=== PATIENT | female | born 1990 | race Caucasian/White ===

== ENCOUNTER → 2023-03-26 | Outpatient (CLI) | payer BC ==
--- NOTE | 2023-03-26 13:51 | US ---
EXAMINATION TYPE: Transabdominal DATE OF EXAM: 03/26/2023 1:28 PM COMPARISON: NONE CLINICAL INDICATION: Female, 32 years old with history of O26.851 SPOTTING COMPLICATING ; Br own spotting started last night. No cramping. Hx miscarriage. EXAM PERFORMED: Transvaginal (TV) and Transabdominal (TA) EXAM MEASUREMENTS: GESTATIONAL AGE / DATING Physician Established: Not yet established. Dates by LMP: (10 weeks/4 days) EDC: 01/11/2023 Dates by First Scan: This is first scan Dates by Current Scan for: (8 weeks/3 days) EDC: 11/02/2023. Heart tones not visualized. MATERNAL ANATOMY Uterus: 10.5 x 6.2 x 3.9 cm Anechoic fluid seen in cervix: 1.9 x 0.7 x 0.3 cm. Right Ovary: 2.8 x 2.3 x 2.0 cm. Left Ovary: 2.9 x 1.7 x 1.4 cm. Post CDS / Adnexa: Appear wnl Presence of free fluid: None seen Presence of corpus luteal cyst: Not seen Presence of subchorionic bleed: No GESTATION / SURVEY CRL: 1.83 cm (8 weeks/3 days) Yolk Sac (normal less than 6mm): 3.4 mm Heart Rate: Not visualized. IUP: Unable to visualize heart tones at this time. Date of LMP: 01/11/2023 Beta HcG (if available): Not available IMPRESSION: 1. Intrauterine with ultrasound age of 8 weeks 3 days without heart rate detected at this t mechelle. This is discordant with dates by last menstrual period. Findings concerning for demise. Cl inical correlation and Short-term follow-up ultrasound recommended for confirmation..
== END | disposition home or self-care (01) ==
LOC: RADUSWWP 12:54 → MERGE 13:00
PROVIDERS: ATTEND Obstetrics & Gynecology
DX: O26.851 Spotting complicating pregnancy, first trimester (principal); Z3A.09 9 weeks gestation of pregnancy
CPT/HCPCS: 76801; 76817

== ENCOUNTER → 2023-03-27 | Outpatient (CLI) | payer BC | END | disposition home or self-care (01) | LOC: LABPAT 14:14 | PROVIDERS: ATTEND Obstetrics & Gynecology | DX: Z53.9 Procedure and treatment not carried out, unspecified reason (principal) ==

== ENCOUNTER → 2023-03-27 | Outpatient (CLI) | payer BC ==
[2023-03-27 15:58] LABS: Partial Thromboplastin Time 24.6 sec (22.0-30.0)
[2023-03-27 16:18] LABS: INR 0.9 (<1.2); Prothrombin Time 10.4 sec (10.0-12.5)
[2023-03-27 20:42] LABS: HCT 40.4 % (37.2-46.3); HGB 13.7 g/dL (12.0-15.0); MCH 29.1 pg (27.0-32.0); MCHC 33.9 g/dL (32.0-37.0); Mean Platelet Volume 11.5 FL (9.5-12.2); NRBC Per 100 WBC 0 X 10*3/uL (0.00-0.01); Platelet Count 263 X 10*3/uL (140-440); RDW 12.6 % (11.5-14.5); WBC 8.13 X 10*3/uL (4.50-10.00)
[2023-03-27 21:14] LABS: Prolactin 28.1 ng/mL (2.800-29.200)
[2023-03-28 13:23] LABS: Prothrombin 20210A Mutation Negative
== END | disposition home or self-care (01) ==
LOC: LABWHC1 14:11
PROVIDERS: ATTEND Obstetrics & Gynecology
DX: N96 Recurrent pregnancy loss (principal)
CPT/HCPCS: 36415; 81240; 81241; 81291; 83036; 84146; 84443; 85027; 85610; 85730

== ENCOUNTER → 2023-03-28 | Outpatient (CLI) | payer BC ==
[2023-03-28 15:48] LABS: Basophils # (A) 0.03 X 10*3/uL (0.00-0.10); Basophils % (A) 0.4 %; Eosinophils # (A) 0.08 X 10*3/uL (0.04-0.35); Eosinophils % (A) 1.2 %; HGB 13.3 g/dL (12.0-15.0); Lymphocytes # (A) 1.56 X 10*3/uL (0.90-5.00); Lymphocytes % (A) 23.2 %; MCHC 33.3 g/dL (32.0-37.0); MCV 87.1 FL (80.0-97.0); Mean Platelet Volume 11.9 FL (9.5-12.2); Monocytes # (A) 0.52 X 10*3/uL (0.20-1.00); Monocytes % (A) 7.7 %; NRBC Per 100 WBC 0 X 10*3/uL (0.00-0.01); Neutrophils # (A) 4.52 X 10*3/uL (1.80-7.70); Neutrophils % (A) 67.2 %; Platelet Count 243 X 10*3/uL (140-440); RBC 4.59 X 10*6/uL (4.10-5.20); RDW 12.5 % (11.5-14.5); WBC 6.73 X 10*3/uL (4.50-10.00)
== END | disposition home or self-care (01) ==
LOC: LABPAT 11:38
PROVIDERS: ATTEND Obstetrics & Gynecology
DX: Z01.812 Encounter for preprocedural laboratory examination (principal); O02.1 Missed abortion; Z3A.00 Weeks of gestation of pregnancy not specified
CPT/HCPCS: 36415; 85025; 86850; 86900; 86901

== ENCOUNTER → 2023-03-30 | Day surgery (SDC) | payer BC ==
[2023-03-28 11:10] VITALS: BMI 47.6
[~2023-03-30] MED LIST: DEXAMETHASONE SOD PHOSPHATE 4 MG/ML 1 ML VIAL IV ONE; KETOROLAC 15 MG/ML 1 ML VIAL ONE; LACTATED RINGERS 1,000 ML IV ONE; LACTATED RINGERS 1,000 ML IV SCH; LIDOCAINE 1% (10MG/ML) FOR IV START INTRADERMA PRN; LIDOCAINE 1% INJ 10MG/ML (20 ML MDV) ONE; LIDOCAINE 2%-EPI 1:100,000 20 ML VIAL SQ ONE; MIDAZOLAM 2 MG/2 ML VIAL IV PRN; MIDAZOLAM 2 MG/2 ML VIAL ONE; ONDANSETRON 4 MG/2 ML VIAL IVP ONE; PHENYLEPHRINE-0.9% NACL SYG 1,000 MCG/10 ML SYRINGE ONE; PROPOFOL 10 MG/ML 20 ML VIAL IV ONE; Pre Op ABX Message 1 EACH MISC MISCELLANE ONE; SCOPOLAMINE 1 MG/72 HR PATCH TRANSDERM ONE; fentaNYL (PF) 50 MCG/ML 2 ML AMP ONE
--- NOTE | 2023-03-30 08:14 | P.OP ---
Date of Procedure: 03/30/23 Preoperative Diagnosis: Missed abortionMissed Postoperative Diagnosis: Same Procedure(s) Performed: Suction D&C Anesthesia: SHIVA, local Surgeon: Helen Arndt Estimated Blood Loss (ml): 20 IV fluids (ml): 400 Urine output (ml): 25 Pathology: other (Products of conception) Condition: stable Disposition: PACU Indications for Procedure: Missed , 8 weeks by LMP, 6 weeks of a gestational sac with no heart tones and decreasing hCG levels Operative Findings: 8 week size uterus, appropriate products of conception Description of Procedure: After the patient was met in the preoperative holding area and all questions were answered, she was taken to the operating room where anesthetic was administered without incident. She was in positioned, prepped and draped in the dorsal lithotomy position. Appropriate timeout procedure was undertaken. Exam under anesthetic was undertaken and the bladder was drained for approximately 25 mL of clear urine. Weighted speculum was placed in the vagina and the cervix was grasped anteriorly with a single-tooth tenaculum. Joellen cervical block with lidocaine plus epinephrine was placed. The uterus was sounded to 10.5 cm. The cervix was sequentially dilated using Hegar dilators dilators to allow for passage of the 8-Albanian curved suction curet. The uterine cavity was circumferentially curettaged with appropriate tissue obtained. Suction curet was removed and the uterus was then circumferentially curettaged with the small sharp banjo curet. Minimal additional tissue was obtained. Final pass with the suction curette was undertaken. Minimal tissue was obtained. Curet was removed from the vagina and the cervix was observed. No active bleeding was noted. Instruments removed from the vagina and bimanual examination was repeated. The uterus felt firm and approximately 6 weeks' size. The patient was then awoken from anesthetic and transported recovery area in good condition. All counts reported to me as correct. Tissue was collected for the a nor genetic testing per protocol. Patient's blood type is Rh+.
[2023-03-30] MEDS: HYDROmorphone 0.5 MG/0.5 ML SYRINGE IVP PRN ×2 (08:20→08:36)
[2023-03-30 08:40] VITALS: TEMP 97
[2023-03-30 09:35] VITALS: BP 104/70; PULSE 60; RESP 14
== END | disposition home or self-care (01) ==
LOC: OR 05:56
PROVIDERS: ATTEND Obstetrics & Gynecology
DX: O02.1 Missed abortion (principal); Z98.890 Other specified postprocedural states; Z79.899 Other long term (current) drug therapy
CPT/HCPCS: 88305; 59820; J2250; J1100; J2405; J2001; J3010; J1885; J2704; J1170; J2371

== ENCOUNTER → 2023-08-28 | Outpatient (CLI) | payer BC ==
--- NOTE | 2023-08-28 13:53 | US ---
EXAMINATION TYPE: Transabdominal DATE OF EXAM: 08/28/2023 1:14 PM COMPARISON: NONE CLINICAL INDICATION: Female, 33 years old with history of O46.91 ANTEPARTUM HEMORRHAGE, UNSPECIFIED, FIRST T; Brown discharge EXAM PERFORMED: Transabdominal (TA) EXAM MEASUREMENTS: GESTATIONAL AGE / DATING Physician Established: Not yet established Dates by LMP: (9 weeks/3 days) EDC: 03/29/24 Dates by First Scan: no prior Dates by Current Scan for: (9 weeks/0 days) EDC: 04/01/24 MATERNAL ANATOMY Uterus: 13.0 x 5.0 x 7.1cm Right Ovary: 3.5 x 3.0 x 2.2cm Left Ovary: 3.0 x 2.3 x 1.8cm Post CDS / Adnexa: wnl Presence of free fluid: no Presence of corpus luteal cyst: yes, right ovary = 1.7 x 1.8 x 1.6cm GESTATION / SURVEY CRL: 2.3cm (9 weeks/0 days) Yolk Sac (normal less than 6mm): 0.4cm Heart Rate: 161 bpm Rhythm: Normal IUP: Viable IUP Date of LMP: 06/23/23 Beta HcG (if available): Not available at this time IMPRESSION: Single live intrauterine with calculated ultrasound age of 9 weeks crown rump length.
== END | disposition home or self-care (01) ==
LOC: RADUSWWP 12:54
PROVIDERS: ATTEND Obstetrics & Gynecology
DX: O46.91 Antepartum hemorrhage, unspecified, first trimester (principal); Z3A.09 9 weeks gestation of pregnancy
CPT/HCPCS: 76801

== ENCOUNTER 2024-03-31 05:57 | Inpatient (IN) | payer BC ==
[2024-03-31] MEDS ORDERED: OXYTOCIN 10 UNIT/ML 1 ML VIAL IM PRN (06:10)
[2024-03-31] MEDS ORDERED: TERBUTALINE 1 MG/ML VIAL SQ PRN (06:10)
[2024-03-31] MEDS ORDERED: METHYLERGONOVINE 0.2 MG/ML 1 ML AMP IM PRN (06:10)
[2024-03-31] MEDS ORDERED: LIDOCAINE 0.5% (PF) 5 MG/ML (50 ML SDV) SQ PRN (06:10)
[2024-03-31] MEDS ORDERED: miSOPROStoL 200 MCG TAB PO PRN (06:10)
[2024-03-31] MEDS ORDERED: miSOPROStoL 200 MCG TAB RECTAL PRN (06:10)
[2024-03-31] MEDS ORDERED: CARBOPROST TROMETHAMINE 250 MCG/ML 1 ML AMP IM PRN (06:10)
[2024-03-31] MEDS ORDERED: TRANEXAMIC 1,000 MG/100ML-NACL 1,000 MG in EMPTY BAG 1 BAG IV PRN (06:10)
[2024-03-31] MEDS: LACTATED RINGERS 1,000 ML IV SCH (06:49)
[2024-03-31 07:10] LABS: Basophils % (A) 0 %; Eosinophils # (A) 0.1 k/uL (0-0.7); Eosinophils % (A) 1 %; HCT 35.8 % (34.0-46.0); HGB 12.3 gm/dL (11.4-16.0); Lymphocytes # (A) 1.3 k/uL (1.0-4.8); Lymphocytes % (A) 15 %; MCH 30.6 pg (25.0-35.0); MCHC 34.4 g/dL (31.0-37.0); Mean Platelet Volume 10.6; Monocytes # (A) 0.5 k/uL (0-1.0); Monocytes % (A) 6 %; Neutrophils # (A) 6.4 k/uL (1.3-7.7); Neutrophils % (A) 75 %; Platelet Count 149 k/uL (150-450); RBC 4.02 m/uL (3.80-5.40); RDW 13.4 % (11.5-15.5); WBC 8.5 k/uL (3.8-10.6)
[2024-03-31] MEDS: OXYTOCIN 30 UNITS/500 ML NS 30 UNIT in SALINE 1 500ML.BAG IV SCH (07:21)
[2024-03-31] MEDS ORDERED: fentaNYL (PF) 50 MCG/ML 5 ML AMP ONE (14:42)
[2024-03-31] MEDS ORDERED: ROPIVACAINE 5 MG/ML 30 ML VIAL ONE (14:42)
[2024-03-31] MEDS ORDERED: SODIUM CHLORIDE 0.9% 250 ML BAG ONE (14:42)
--- NOTE | 2024-03-31 16:29 | P.HPOB ---
History of Present Illness H&P Date: 03/31/24 Chief Complaint: at 40 2/7 This is a 33 year old women who is admitted at 40 2/7 for induction of labor secondary to history of induced hypertension. She has been maintained on labetolol 200 mg BID with negative preeclampsia testing. Her home BPs have been in the 130/80s for the most part. She has been asymptomatic. Obstetric history is significant for 3 early first trimester miscarriages prior to this conception. Laboratory data: Blood type A+, antibody screen negative, rubella immune, VDRL nonreactive, hepatitis B and hepatitis C negative, HIV negative, gonorrhea and clinic cultures negative, glucose tolerance testing within normal limits, group B strep negative On admission her cervix Is 1-2 cm dilated, 50% effaced, vertex in the -3 station. The scalp electrode is placed and utilized for artificial rupture of membranes. Thin meconium-stained fluid is noted. status is reassuring by internal monitoring, category 1. Review of Systems Constitutional: Denies chronic headaches Past Medical History Past Medical History: No Reported History History of Any Multi-Drug Resistant Organisms: None Reported Past Surgical History: No Surgical Hx Reported Additional Past Surgical History / Comment(s): D&C x2 Past Anesthesia/Blood Transfusion Reactions: Postoperative Nausea & Vomiting (PONV) Additional Past Anesthesia/Blood Transfusion Reaction / Comment(s): no blood tx hx Past Psychological History: No Psychological Hx Reported Smoking Status: Never smoker Additional Past Alcohol Use History / Comment(s): weekends when not Past Drug Use History: None Reported - Past Family History Father Family Medical History: Diabetes Mellitus, Hypertension Medications and Allergies Home Medications Medication Instructions Recorded Confirmed Type Prental Gummie(Unk) 1 tab PO DAILY 09/28/22 03/31/24 History Aspirin 81 mg PO DAILY 03/08/24 03/31/24 History Labetalol [Trandate] 200 mg PO TID 03/08/24 03/08/24 History Allergies Allergy/AdvReac Type Severity Reaction Status Date / Time No Known Allergies Allergy Verified 03/31/24 06:09 Exam Vital Signs Temp Pulse Resp BP Pulse Ox 03/31/24 06:08 97.3 F L 77 16 140/75 97 Intake and Output 03/31/24 03/31/24 03/31/24 06:59 14:59 22:59 Other: # Voids 1 Weight 136.078 kg Results Result Diagrams: 03/31/24 06:50 Abnormal Lab Results - Last 24 Hours (Table) 03/31/24 Range/Units 06:50 Plt Count 149 L (150-450) k/uL Assessment and Plan (1) induced hypertension Current Visit: Yes Status: Acute Code(s): O13.9 - GESTATIONAL HTN W/O SIGNIFICANT PROTEINURIA, UNSP TRIMESTER SNOMED Code(s): 61845147 (2) Advanced maternal age (AMA) in Current Visit: Yes Status: Acute Code(s): [id number] - SNOMED Code(s): 581579778 (3) Obesity Current Visit: Yes Status: Acute Code(s): E66.9 - OBESITY, UNSPECIFIED SNOMED Code(s): 182924585 (4) Meconium in amniotic fluid Current Visit: Yes Status: Acute Code(s): P96.83 - MECONIUM STAINING SNOMED Code(s): 8147342 Plan: 33-year-old 4 para 0030 woman who is admitted at 40-2/7 weeks' gestation for induction of labor secondary to -induced hypertension. Blood pressures on admission are intolerable range and she was started on Pitocin and undergoes under artificial rupture of membranes. status is reassuring. She is group B strep negative and Rh+. Anticipate normal spontaneous vaginal delivery.
[2024-04-01] MEDS ORDERED: CARBOPROST TROMETHAMINE 250 MCG/ML 1 ML AMP IM PRN (01:24)
[2024-04-01] MEDS ORDERED: OXYTOCIN 10 UNIT/ML 1 ML VIAL IM PRN (01:24)
[2024-04-01] MEDS ORDERED: METHYLERGONOVINE 0.2 MG/ML 1 ML AMP IM PRN (01:24)
[2024-04-01] MEDS ORDERED: miSOPROStoL 200 MCG TAB PO PRN (01:24)
[2024-04-01] MEDS ORDERED: TRANEXAMIC 1,000 MG/100ML-NACL 1,000 MG in EMPTY BAG 1 BAG IV PRN (01:24)
[2024-04-01] MEDS: CITRIC ACID-SODIUM CITRATE 15 ML CUP PO ONE (01:34)
[2024-04-01] MEDS: ceFAZolin 3 GM in SODIUM CHLORIDE 0.9% 100 ML IVPB ONE (01:40)
[2024-04-01] MEDS ORDERED: KETOROLAC 15 MG/ML 1 ML VIAL ONE (01:45)
[2024-04-01] MEDS ORDERED: LIDOCAINE HCL/PF 20 MG/ML 10 ML AMP ONE (01:45)
[2024-04-01] MEDS ORDERED: MORPHINE SULFATE (PF) 0.3 MG/0.3 ML SYR ONE (01:45)
[2024-04-01] MEDS ORDERED: ROPIVACAINE 5 MG/ML 30 ML VIAL ONE (01:45)
[2024-04-01] MEDS ORDERED: diphenhydrAMINE 50 MG CAP PO PRN (02:44)
[2024-04-01] MEDS ORDERED: ONDANSETRON 4 MG/2 ML VIAL IVP PRN (02:44)
[2024-04-01] MEDS ORDERED: HYDROmorphone 1 MG/ML 1 ML SYRINGE IVP PRN (02:44)
[2024-04-01] MEDS ORDERED: diphenhydrAMINE 50 MG/ML 1 ML VIAL IVP PRN ×2 (02:44)
[2024-04-01] MEDS ORDERED: METOCLOPRAMIDE 5 MG/ML 2 ML VIAL IVP PRN (02:44)
[2024-04-01] MEDS ORDERED: diphenhydrAMINE 25 MG CAP PO PRN (02:44)
[2024-04-01] MEDS ORDERED: ZOLPIDEM 5 MG TAB PO PRN (02:44)
[2024-04-01] MEDS ORDERED: NALOXONE 0.4 MG/ML 1 ML VIAL IV PRN (02:44)
--- NOTE | 2024-04-01 02:44 | P.OP ---
Date of Procedure: 04/01/24 Preoperative Diagnosis: intrauterine at 40-2/7 weeks Arrestive descent and dilatation -induced hypertension Advanced maternal age Meconium-stained fluid Postoperative Diagnosis: Same Occiput posterior position Nuchal cord 1 Procedure(s) Performed: Primary low transverse section Anesthesia: epidural Surgeon: Helen Arndt Awning Maker #1: Cass Vang Estimated Blood Loss (ml): 500 IV fluids (ml): 100 Urine output (ml): 300 Pathology: none sent Condition: stable Disposition: floor Indications for Procedure: This is a 33-year-old 4 para 0030 woman who was admitted at 40-3/7 weeks gestation for induction of labor secondary to -induced hypertension and postdates. Following admission she went artificial rupture of membranes and Pitocin induction of labor. She progressed to approximately 5 cm dilated by 4 PM and despite adequate contraction pattern and Pitocin she did not progress past 5 cm dilated over the following 6 hours. Occiput posterior position was suspected. The patient and her partner were counseled about labor situation and all questions were answered. Shared her decision-making was made and the decision was made to proceed to primary low transverse section. Risks of the procedure were reviewed including bleeding, transfusion, infection, damage to bowel, bladder, ureters, and/or other structures. All que stions were answered and consent was obtained. Operative Findings: Male in the occiput posterior position with Apgars of 8 at 1 minute and 9 at 5 minutes weighing 7 lbs. 15 oz., 3600 g. Intact, three-vessel cord placenta. Normal appearing uterus, bilateral fallopian tubes and ovaries. Description of Procedure: After the patient was met preoperatively and all questions were answered, she was taken to the operating room where spinal anesthetic was administered without incident. She was then positioned, prepped and draped in the dorsal supine position with a leftward tilt. Beverly catheter was placed. After anesthetic was confirmed adequate, a low transverse skin incision was made following the pre- existing scar. This was carried down to the underlying fascia both sharply and with the electrocautery. The fascia was then incised in the midline and extended bilaterally with the Mckeon scissors. The superior aspect of the fascial incision was elevated and the underlying rectus muscles dissected off sharply and with the electrocautery. The inferior aspect of the fascial incision was also elevated and the underlying rectus muscles dissected off sharply. The muscles were adherent in the midline. These were bluntly and the peritoneum was tented up with hemostats. The peritoneum was entered sharply with the Metzenbaum scissors. The peritoneal incision was extended inferiorly and superiorly with good visualization of the bladder. The Dian retractor was placed. The bladder blade was placed. The vesicouterine peritoneum was identified, tented up and entered sharply, the bladder flap was created both sharply and digitally. A low transverse uterine incision was then made sharply and carried down to the underlying amniotic membranes. Membranes were ruptured and clear fluid was noted. The uterine incision was extended bilaterally bluntly. The infant's head was delivered from the incision without difficulty From the occiput posterior position. Nuchal cord 1 was reduced.. The nose and mouth were bulb suctioned. The rest of the was delivered onto the field without difficulty. And cut and the infant was taken to the warmer. An intact, three-vessel cord placenta was then manually removed and the uterus was exteriorized. The uterus was cleared of all clot and debris. The uterine incis ion was delineated with Nguyen clamps. The uterine incision was then closed in a running locked fashion with 0 Vicryl suture. Second imbricating layer of the same suture was placed. Additional [id number] sutures were placed where necessary along the incision for hemostasis. The uterus was then returned to the abdomen and the gutters were cleared of all clot and debris. The uterine incis ion was reinspected and Bovie electrocautery was utilized were necessary for hemostasis. The fascial edges, peritoneal edges and rectus muscles were inspected and Bovie electrocautery utilized were necessary for hemostasis. The fascia was then closed in a running fashion with 0 Vicryl suture. The subcuticular tissue was copiously suction irrigated and Bovie electrocautery utilized were necessary for hemostasis. 3-0 Vicryl suture was utilized to reapproximate the subcuticular tissue. The skin was then closed in a subcutaneous fashion with 4-0 Vicryl suture. All counts reported to me as co rrect by the operating room staff at the end of the procedure. The patient received antibiotics preoperatively and Pitocin following cord clamp. Mother and infant were both transported from the room in stable condition.
[2024-04-01] MEDS: LACTATED RINGERS 1,000 ML IV SCH (02:45)
[2024-04-01] MEDS: ACETAMINOPHEN TAB 500 MG TAB PO SCH (05:15)
[2024-04-01] MEDS: SENNOSIDES-DOCUSATE SODIUM 1 EACH TAB PO SCH (09:52)
[2024-04-01] MEDS: KETOROLAC 15 MG/ML 1 ML VIAL IVP SCH (09:53)
[2024-04-02] MEDS: IBUPROFEN 800 MG TAB PO SCH (00:06)
--- NOTE | 2024-04-02 05:35 | P.PN ---
Progress Note - Text Progress Note Date: 04/02/24 33 yo female s/p with epidural administered duramorph VSS Overall doing well No pruritis VAS 2-3/10 in severity Ambulating well tolerating diet Patient stable for discharge from anesthetic standpoint
[2024-04-02 07:23] LABS: Basophils % (A) 0 %; Eosinophils # (A) 0.1 k/uL (0-0.7); Eosinophils % (A) 1 %; HCT 29.8 % (34.0-46.0); HGB 10.3 gm/dL (11.4-16.0); Lymphocytes % (A) 19 %; MCH 30.7 pg (25.0-35.0); MCHC 34.4 g/dL (31.0-37.0); MCV 89.4 fL (80.0-100.0); Monocytes # (A) 0.7 k/uL (0-1.0); Monocytes % (A) 7 %; Neutrophils # (A) 7.6 k/uL (1.3-7.7); Neutrophils % (A) 72 %; Platelet Count 136 k/uL (150-450); RBC 3.34 m/uL (3.80-5.40); RDW 14.1 % (11.5-15.5); WBC 10.6 k/uL (3.8-10.6)
[2024-04-02] MEDS ORDERED: IBUPROFEN 800 MG TAB PO SCH (08:00)
--- NOTE | 2024-04-02 08:06 | P.PNOBGPC ---
Subjective - Subjective Principal diagnosis: POD 1 Interval history: Feeling well, moderate lochia. BPs normal. Patient reports: Reports appetite normal, Reports voiding normally, Reports dizzy ambulation, Reports pain well controlled, Reports ambulating normally [place]: doing well, nursing well Objective - Vital Signs Latest vital signs: Vital Signs Temp Pulse Resp BP Pulse Ox 04/02/24 00:00 98.4 F 89 16 123/87 98 04/01/24 20:00 98.6 F 97 16 117/82 97 04/01/24 16:00 97.6 F 90 15 118/77 04/01/24 11:59 98.3 F 88 14 135/76 04/01/24 08:07 99.6 F 85 16 113/73 97 Intake and Output 04/01/24 04/02/24 04/02/24 22:59 06:59 14:59 Intake Total 480 Output Total 100 Balance 380 Intake: Oral 480 Output: Urine 100 Other: # Voids 1 2 - Exam Extremities: Present: edema Abdomen: Present: normal appearance, soft. Absent: distention, tenderness Incision: Present: normal, dry, intact. Absent: erythematous Uterus: Present: normal, firm. Absent: tenderness - Labs Labs: Abnormal Lab Results - Last 24 Hours (Table) 04/02/24 Range/Units 06:22 RBC 3.34 L (3.80-5.40) m/uL Hgb 10.3 L (11.4-16.0) gm/dL Hct 29.8 L (34.0-46.0) % Plt Count 136 L (150-450) k/uL Assessment and Plan (1) induced hypertension Current Visit: Yes Status: Acute Code(s): O13.9 - GESTATIONAL HTN W/O SIGNIFICANT PROTEINURIA, UNSP TRIMESTER SNOMED Code(s): 43070514 (2) Advanced maternal age (AMA) in Current Visit: Yes Status: Acute Code(s): [id number] - SNOMED Code(s): 061405293 (3) Obesity Current Visit: Yes Status: Acute Code(s): E66.9 - OBESITY, UNSPECIFIED SNOMED Code(s): 552062592 (4) Meconium in amniotic fluid Current Visit: Yes Status: Acute Code(s): P96.83 - MECONIUM STAINING SNOMED Code(s): 8882273 (5) Failure to progress in first stage of labor Current Visit: Yes Status: Acute Code(s): O63.0 - PROLONGED FIRST STAGE (OF LABOR) SNOMED Code(s): 448363247 (6) Occiput posterior presentation of fetus Current Visit: Yes Status: Acute Code(s): O64.0XX0 - OBSTRUCTED LABOR DUE TO INCMPL ROTATION OF HEAD, UNSP SNOMED Code(s): 06204513 (7) Nuchal cord Current Visit: Yes Status: Acute Code(s): ADH6427 - SNOMED Code(s): 282503015 (8) S/P section Current Visit: Yes Status: Acute Code(s): Z98.891 - HISTORY OF UTERINE SCAR FROM PREVIOUS SURGERY SNOMED Code(s): 502024196 Plan: POD 1 s/p primary LTCS for arrest of descent and dilitation, Occiput posterior position. BPs normalized. Lochia moderate. Recovering well, routine care, home tomorrow.
[2024-04-02 20:54] VITALS: RESP 16
--- NOTE | 2024-04-03 08:31 | P.DS ---
Providers Date of admission: 03/31/24 05:57 Expected date of discharge: 04/03/24 Attending physician: Helen Arndt Primary care physician: Stated None - Discharge Diagnosis(es) (1) induced hypertension Current Visit: Yes Status: Acute (2) Advanced maternal age (AMA) in Current Visit: Yes Status: Acute (3) Obesity Current Visit: Yes Status: Acute (4) Meconium in amniotic fluid Current Visit: Yes Status: Acute (5) Failure to progress in first stage of labor Current Visit: Yes Status: Acute (6) Occiput posterior presentation of fetus Current Visit: Yes Status: Acute (7) Nuchal cord Current Visit: Yes Status: Acute (8) S/P section Current Visit: Yes Status: Acute Hospital Course: This is a 33-year-old 4 now para 1031 woman who is admitted at 40-3/7 weeks gestation for induction of labor secondary to history of -induced hypertension and postdates. Following admission she underwent a Pitocin induction of labor with artificial rupture of membranes. Her blood pressures were stable on admission. She did receive an epidural anesthetic and progressed to approximate 5 cm dilated at which time she experienced arrest of descent and dilatation. She remained 5 cm dilated for greater than 6 hours despite adequate contraction activity. Occiput posterior position was suspected. After shared decision-making plan was for primary low transverse section which she underwent without complication. Findings at the time of surgery were significant for infant in the occiput posterior position with Apgars of 8 at 1 minute and 9 at 5 minutes weighing 7 lbs. 15 oz. Please see the operative report for details. The patient's post operative course was unremarkable. Her blood pressures remained within the normal range. By postoperative day #1 she was ambulating and voiding without difficulty and her pain was well-controlled. By postoperative day #2 she continued to do well and was nursing successfully with moderate lochia noted. She was therefore discharged home with routine instructions for postop care and follow-up. Patient Condition at Discharge: Good Plan - Discharge Summary New Discharge Prescriptions: No Action Prental Gummie(Unk) 1 tab PO DAILY Labetalol [Trandate] 200 mg PO TID Aspirin 81 mg PO DAILY Discharge Medication List Aspirin 81 mg PO DAILY 03/08/24 [History] Follow up Appointment(s)/Referral(s): Helen Arndt MD [STAFF PHYSICIAN] - 05/12/24 11:00 am (Post C/S Appointment 04-15-2024 at 1:45pm) Activity/Diet/Wound Care/Special Instructions: Follow-up in 2 weeks after surgery in the office. Call the office with any concerning signs or symptoms including fever greater than 101, severe abdominal pain, heavy vaginal bleeding, signs of wound infection, increased swelling or redness of the lower extremities, signs of depression. No driving for 2 weeks after surgery. No heavy lifting or vigorous activity until reevaluated in the office. No intercourse for 6 weeks after delivery. Discharge Disposition: HOME SELF-CARE
[2024-04-03 09:07] VITALS: BP 145/89; PULSE 70; TEMP 98.4
== END 2024-04-03 11:45 | disposition home or self-care (01) | DRG 788 ==
LOC: 4FBP 05:57
PROVIDERS: ADMIT Obstetrics & Gynecology; ATTEND Obstetrics & Gynecology
PROC: 4A1H74Z Monitoring of Products of Conception, Cardiac Electrical Activity, Via Natural or Artificial Opening (ICD-10-PCS; 2024-03-31)
PROC: 3E033VJ Introduction of Other Hormone into Peripheral Vein, Percutaneous Approach (ICD-10-PCS; 2024-03-31)
PROC: 10907ZC Drainage of Amniotic Fluid, Therapeutic from Products of Conception, Via Natural or Artificial Opening (ICD-10-PCS; 2024-03-31)
PROC: 10H073Z Insertion of Monitoring Electrode into Products of Conception, Via Natural or Artificial Opening (ICD-10-PCS; 2024-03-31)
PROC: 10D00Z1 Extraction of Products of Conception, Low, Open Approach (ICD-10-PCS; principal; 2024-04-01 01:23)
DX: O13.4 Gestational [pregnancy-induced] hypertension without significant proteinuria, complicating childbirth (principal); E66.9 Obesity, unspecified; O32.8XX0 Maternal care for other malpresentation of fetus, not applicable or unspecified; O48.0 Post-term pregnancy; O99.214 Obesity complicating childbirth; O77.0 Labor and delivery complicated by meconium in amniotic fluid; O69.81X0 Labor and delivery complicated by cord around neck, without compression, not applicable or unspecified; O62.0 Primary inadequate contractions; O61.0 Failed medical induction of labor; Z79.899 Other long term (current) drug therapy; Z79.82 Long term (current) use of aspirin; Z3A.40 40 weeks gestation of pregnancy; Z37.0 Single live birth
CPT/HCPCS: 85025; 86850; 86900; 86901